=== PATIENT | male | born 1955 | race Caucasian/White ===

== ENCOUNTER 2019-11-10 11:24 | Emergency (ER) | payer OTHER ==
[2019-11-10 11:29] VITALS: BP 141/68; PULSE 70; TEMP 98.3; BMI 26.4
--- NOTE | 2019-11-10 11:34 | PDOC ---
History of Present Illness - General Chief Complaint: Pain, Acute Stated Complaint: LOW BACK PAIN Time Seen by Provider: 11/10/19 11:26 History Source: Patient Exam Limitations: No Limitations - History of Present Illness Initial Comments: 11/10/19 11:30 64 y/o male status post fall on back 5 days ago states that the pain in back is getting worse. Took Motrin yesterday. Hit head as well, but no LOC or headache. No N/V. Slipped on ice. Right side of back still continues to hurt. No chest pain or SOB. Denies weakness or numbness. Is this a multiple visit Asthma Patient?: No Past History - Past Medical History Allergies/Adverse Reactions: Allergies Allergy/AdvReac Type Severity Reaction Status Date / Time No Known Allergies Allergy Verified 11/10/19 11:26 Home Medications: Ambulatory Orders Aspirin [ASA -] 81 mg PO DAILY 11/10/19 Atorvastatin Ca [Lipitor] 40 mg PO HS 11/10/19 Cyclobenzaprine HCl 10 mg PO TID #10 tablet 11/10/19 COPD: No - Psycho Social/Smoking Cessation Hx Smoking History: Never smoked Hx Alcohol Use: Yes (OCASIONAL) Drug/Substance Use Hx: No Review of Systems - Review of Systems Able to Perform ROS?: Yes Is the patient limited [place]ian proficient: No Constitutional: No: Chills, Fever HEENTM: No: Double Vision Respiratory: No: Cough Cardiac (ROS): No: Chest Pain, Syncope ABD/GI: No: Nausea, Vomiting Musculoskeletal: Yes: Back Pain Integumentary: No: Bruising, Erythema All Other Systems: Reviewed and Negative *Physical Exam - Vital Signs Last Vital Signs Temp Pulse Resp BP Pulse Ox 98.3 F 70 17 141/68 100 11/10/19 11:25 11/10/19 11:25 11/10/19 11:25 11/10/19 11:25 11/10/19 11:25 - Physical Exam General Appearance: Yes: Nourished, Appropriately Dressed. No: Apparent Distress HEENT: positive: EOMI, PAM, Normal ENT Inspection, Normal Voice, Symmetrical, Pharynx Normal Neck: positive: Trachea midline, Normal Thyroid, Supple. negative: Tender, Rigid, Carotid bruit Respiratory/Chest: positive: Lungs Clear, Normal Breath Sounds. negative: Chest Tender, Respiratory Distress Cardiovascular: positive: Regular Rhythm, Regular Rate, S1, S2. negative: Edema , JVD, Murmur Vascular Pulses: Femoral (R): 4+, Femoral (L): 4+, Carotid (R): 4+, Carotid (L) : 4+, Dorsalis-Pedis (R): 4+, Doralis-Pedis (L): 4+ Lymphatic: negative: Adenopathy, Tenderness, Other Musculoskeletal: positive: Other (tenderness to right lower back ribs, no thoracic spine or lumbar spine tenderness noted, full ROM, strength 5+/5 b/l in LE, no focal deficits noted). negative: CVA Tenderness Extremity: positive: Normal Capillary Refill, Normal Inspection, Normal Range of Motion, Tender, Pelvis Stable ED Treatment Course - ADDITIONAL ORDERS Additional order review: 11/10/19 11:34 S/P fall, right sided back pain continue Will obtain x-rays and UA 11/10/19 12:52 spine thoracic x-ray negative ribs negative Will place on flexeril and Motrin If worsen return to ER Pt in agreement with plan - RADIOLOGY Radiology Studies Ordered: Category Date Time Status RIBS RIGHT SIDE [RAD] Stat Radiology 11/10/19 11:29 Ordered SPINE-THORACIC [RAD] Stat Radiology 11/10/19 11:29 Ordered Discharge - Discharge Information Problems reviewed: Yes Clinical Impression/Diagnosis: Strain of thoracic back region Condition: Good Disposition: HOME - Admission No - Follow up/Referral - Patient Discharge Instructions Patient Printed Discharge Instructions: DI for Back Strain or Sprain Additional Instructions: Ice, Motrin, rest Flexeril 10 mg 3x/day as needed If worsen return to ER - Post Discharge Activity
== END 2019-11-10 13:00 | disposition home or self-care (01) ==
LOC: FER 11:24
DX: S23.3XXA Sprain of ligaments of thoracic spine, initial encounter (principal); W01.0XXA Fall on same level from slipping, tripping and stumbling without subsequent striking against object, initial encounter; Y93.01 Activity, walking, marching and hiking; Y92.89 Other specified places as the place of occurrence of the external cause
CPT/HCPCS: 71101-TC-RT-FY; 72070-TC-FY; 81003; 99282-25

== ENCOUNTER 2022-10-15 09:25 | Emergency (ER) | payer OTHER ==
[2022-10-15] MEDS ORDERED: LIDOCAINE 5% TOPICAL PATCH TP ONE (09:53)
[2022-10-15] MEDS ORDERED: KETOROLAC TROMETHAMINE 30 MG/1 ML VIAL IM ONE (09:53)
[2022-10-15] MEDS ORDERED: METHOCARBAMOL 500 MG TABLET PO ONE (09:53)
[2022-10-15 10:05] VITALS: BP 133/75; PULSE 64; RESP 16; TEMP 97.5; BMI 27.3
[2022-10-15] MEDS ORDERED: KETOROLAC TROMETHAMINE 30 MG/1 ML VIAL ONE (10:18)
[2022-10-15] MEDS ORDERED: LIDOCAINE 5% TOPICAL PATCH ONE (10:18)
[2022-10-15] MEDS ORDERED: METHOCARBAMOL 500 MG TABLET ONE (10:18)
[2022-10-15] MEDS ORDERED: LIDOCAINE PATCH REMOVAL MC SCH (22:00)
== END 2022-10-15 11:20 | disposition home or self-care (01) ==
LOC: FER 09:25
PROC: 3E0233Z Introduction of Anti-inflammatory into Muscle, Percutaneous Approach (ICD-10-PCS; principal; 2022-10-15)
DX: M54.50 Low back pain, unspecified (principal)
CPT/HCPCS: 99284-25